=== PATIENT | female | born 1955 | race Caucasian/White ===

== ENCOUNTER 2017-11-23 15:13 | Emergency (ER) | payer MEDICARE ==
[~2017-11-23] VITALS: Ht 170.2 cm; Wt 80.0 kg
[~2017-11-23 15:13] MED LIST: ERTA1VIA2 IV; LEVO25TA4 PO; OLAN2.5T10 PO; RISP0.253 PO; SERT25TA3 PO
[2017-11-23 16:25] LABS: MICROSCOPIC NOT IND
[2017-11-23 16:26] LABS: BASOPHILS # (AUTO) 0.03 x10^3/uL (0-0.1); BASOPHILS % (AUTO) 1 % (0-1); EOSINOPHILS # (AUTO) 0.09 x10^3/uL (0-0.4); EOSINOPHILS % (AUTO) 2 % (1-7); LYMPHOCYTES # (AUTO) 1.59 x10^3/uL (1-3.4); LYMPHOCYTES % (AUTO) 25 % (22-44); MD NO; MEAN CORPUSCULAR HEMOGLOBIN 29.7 pg (27.0-34.8); MEAN CORPUSCULAR HGB CONC 34.2 g/dL (32.4-35.8); MEAN PLATELET VOLUME 6.8 fL (7.4-10.4); MONOCYTES % (AUTO) 8 % (2-9); NEUTROPHILS # (AUTO) 4.23 x10^3/uL (1.8-6.8); NEUTROPHILS % (AUTO) 66 % (42-75); PLATELET COUNT 179 x10^3/uL (130-400); RED BLOOD COUNT 4.67 x10^6/uL (3.82-5.3); RED CELL DISTRIBUTION WIDTH 12.9 % (9.6-15.2)
[2017-11-23 16:34] LABS: CULTURE INDICATED? NO
[2017-11-23 16:37] LABS: ALBUMIN 3.6 g/dL (3.4-5.0); ANION GAP 7 mmol/L (5-15); CALCIUM 8.4 mg/dL (8.5-10.1); CHLORIDE 108 mmol/L (98-107)
[2017-11-23 16:38] LABS: CREATININE 1.05 mg/dL (0.55-1.02)
[2017-11-23 17:22] VITALS: BP 122/86
== END 2017-11-23 18:56 | disposition home or self-care (01) ==
LOC: ED 17:54
DX: R35.0 Frequency of micturition (principal); M54.5 Low back pain; R10.9 Unspecified abdominal pain
CPT/HCPCS: 36415; 80048; 81003; 82040; 85025; 87086; 99284